=== PATIENT | male | born 1960 | race Caucasian/White ===

== ENCOUNTER 2018-05-29 08:09 | Observation (INO) | payer MEDICARE, OTHER ==
[2018-05-29 08:50] LABS: ADD MAN DIFF? NO
[2018-05-29 08:52] LABS: BASOPHILS % 0.4 % (0.0-2.0); EOSINOPHILS % 0.3 % (0.0-7.0); HEMATOCRIT 41.7 % (42.0-52.0); HEMOGLOBIN 13.2 g/dl (14.0-18.0); LYMPHOCYTES # 2.4 10^3/ul (0.8-2.9); LYMPHOCYTES % 31.1 % (15.0-51.0); MEAN CORPUSCULAR HEMOGLOBIN 28.3 pg (29.0-33.0); MEAN CORPUSCULAR HGB CONC 31.7 g/dl (32.0-37.0); MEAN CORPUSCULAR VOLUME 89.3 fl (82.0-101.0); MONOCYTE # 0.7 10^3/ul (0.3-0.9); MONOCYTES % 8.4 % (0.0-11.0); NEUTROPHIL # 4.6 10^3/ul (1.6-7.5); NEUTROPHILS % 59.2 % (39.0-77.0); PLATELET COUNT 205 10^3/UL (140-415); RED BLOOD COUNT 4.67 10^6/ul (4.70-6.10); RED CELL DISTRIBUTION WIDTH 13.7 % (11.5-14.5)
[2018-05-29 08:52] LABS: WHITE BLOOD COUNT 7.8 10^3/ul (4.8-10.8)
[2018-05-29] MEDS: SOD CHLORIDE 0.9% 500 ML IV (09:10)
[2018-05-29 09:11] LABS: ANION GAP 14 (8-16); BLOOD UREA NITROGEN 25 mg/dl (7-20); CALCIUM 9.4 mg/dl (8.4-10.2); CARBON DIOXIDE 26 mmol/L (21-31); CHLORIDE 104 mmol/L (97-110); CREATININE 1.29 mg/dl (0.61-1.24); GLUCOSE 122 mg/dl (70-220); SODIUM 140 mmol/L (135-144)
[2018-05-29 09:23] LABS: TROPONIN-I < 0.010 ng/ml (0.000-0.120)
[2018-05-29 09:25] LABS: ADD UMIC NO; UR ASCORBIC ACID NEGATIVE (NEGATIVE); UR BILIRUBIN (Dip) NEGATIVE (NEGATIVE); UR BLOOD (Dip) NEGATIVE (NEGATIVE); UR CLARITY CLEAR (CLEAR); UR COLOR STRAW (YELLOW); UR GLUCOSE (Dip) NEGATIVE (NEGATIVE); UR KETONES (Dip) NEGATIVE (NEGATIVE); UR LEUKOCYTE ESTERASE (Dip) NEGATIVE Leu/ul (NEGATIVE); UR NITRITE (Dip) NEGATIVE (NEGATIVE); UR SPECIFIC GRAVITY (Dip) 1.013 (1.003-1.030); UR TOTAL PROTEIN (Dip) NEGATIVE (NEGATIVE); UR UROBILINOGEN (Dip) NEGATIVE (NEGATIVE)
[2018-05-29] MEDS: SOD CHLORIDE 0.9% 1,000 ML IV ×2 (10:04→12:44)
[2018-05-29] MEDS ORDERED: ACETAMINOPHEN 325 MG TAB PO ×2 (11:30→12:00)
[2018-05-29] MEDS ORDERED: ONDANSETRON 4 MG INJ IV ×2 (11:30→12:00)
[2018-05-29] MEDS ORDERED: ALBUTEROL/IPRATROPIUM (NEB) 3 ML AMP HHN (12:00)
[2018-05-29] MEDS ORDERED: DOCUSATE SODIUM 100 MG CAP PO (12:00)
[2018-05-29] MEDS ORDERED: hydrALAzine 20 MG INJ IV (12:00)
[2018-05-29] MEDS ORDERED: LORAZEPAM 2 MG INJ IV (12:00)
[2018-05-29] MEDS ORDERED: NACL 0.9% 3 ML SYG IV (12:00)
[2018-05-29] MEDS ORDERED: MAGNESIUM HYDROXIDE 30ML CUP PO (12:00)
[2018-05-29] MEDS ORDERED: NA PHOSPHATE/BIPHOS 133 ML ENEMA PR (12:00)
[2018-05-29] MEDS ORDERED: HYDROCODONE/APAP (5/325) TAB PO (12:00)
[2018-05-29] MEDS ORDERED: NITROGLYCERIN (SL) 0.4 MG TAB SL (12:00)
[2018-05-29] MEDS ORDERED: morphine 2 MG INJ IV (12:00)
[2018-05-29] MEDS: CARBIDOPA/LEVODOPA (25/250) TAB PO ×2 (12:47→22:21)
[2018-05-29] MEDS: PRAMIPEXOLE 1 MG TAB PO ×2 (12:50→22:21)
[2018-05-29 14:09] LABS: FREE T4 (FREE THYROXINE) 1.19 ng/dl (0.64-1.79)
[2018-05-29] MEDS ORDERED: HEPARIN 5,000 UNIT/0.5 ML VIAL SC (21:00)
[2018-05-30] MEDS: SOD CHLORIDE 0.9% 500 ML IV ×4 (03:03→18:06)
[2018-05-30 06:02] LABS: ADD MAN DIFF? NO
[2018-05-30 06:08] LABS: WHITE BLOOD COUNT 6.4 10^3/ul (4.8-10.8)
[2018-05-30 06:08] LABS: BASOPHILS % 0.5 % (0.0-2.0); EOSINOPHILS # 0.1 10^3/ul (0.0-0.5); EOSINOPHILS % 1.1 % (0.0-7.0); HEMATOCRIT 42.4 % (42.0-52.0); HEMOGLOBIN 13.6 g/dl (14.0-18.0); LYMPHOCYTES # 1.8 10^3/ul (0.8-2.9); LYMPHOCYTES % 27.4 % (15.0-51.0); MEAN CORPUSCULAR HEMOGLOBIN 28.3 pg (29.0-33.0); MEAN CORPUSCULAR HGB CONC 32.1 g/dl (32.0-37.0); MEAN CORPUSCULAR VOLUME 88.1 fl (82.0-101.0); MONOCYTE # 0.8 10^3/ul (0.3-0.9); MONOCYTES % 12.6 % (0.0-11.0); NEUTROPHIL # 3.7 10^3/ul (1.6-7.5); NEUTROPHILS % 58.1 % (39.0-77.0); PLATELET COUNT 207 10^3/UL (140-415); RED BLOOD COUNT 4.81 10^6/ul (4.70-6.10); RED CELL DISTRIBUTION WIDTH 13.6 % (11.5-14.5)
[2018-05-30] MEDS: PANTOPRAZOLE (EC) 40 MG TAB PO (06:11)
[2018-05-30 06:41] LABS: CHOL/HDL RATIO 4.2 RATIO; HDL CHOLESTEROL 41 mg/dl (28-71); LDL CHOLESTEROL,CALCULATED 108 mg/dl; TRIGLYCERIDES 122 mg/dl (0-149)
[2018-05-30 06:41] LABS: CHOLESTEROL 173 mg/dl (100-200)
[2018-05-30 06:44] LABS: HEMOGLOBIN A1C 6.4 % (0-5.9)
[2018-05-30 06:45] LABS: ANION GAP 11 (8-16); BLOOD UREA NITROGEN 16 mg/dl (7-20); CALCIUM 9.2 mg/dl (8.4-10.2); CARBON DIOXIDE 26 mmol/L (21-31); CHLORIDE 106 mmol/L (97-110); CREATININE 1.07 mg/dl (0.61-1.24); GLUCOSE 100 mg/dl (70-220); MAGNESIUM 1.8 mg/dl (1.7-2.5); PHOSPHORUS 3.5 mg/dl (2.5-4.9); POTASSIUM 4.3 mmol/L (3.5-5.1); SODIUM 139 mmol/L (135-144)
[2018-05-30 07:11] LABS: THYROID STIMULATING HORMONE 0.674 MIU/L (0.465-4.680)
[2018-05-30] MEDS: PRAMIPEXOLE 1 MG TAB PO ×3 (08:41→20:43)
[2018-05-30] MEDS: CARBIDOPA/LEVODOPA (25/250) TAB PO ×4 (08:42→20:43)
[2018-05-30] MEDS ORDERED: morphine LIQ (10 MG/5 ML) CUP PO (22:30)
[2018-05-31] MEDS: SOD CHLORIDE 0.9% 500 ML IV ×2 (01:00→03:00)
[2018-05-31] MEDS: PANTOPRAZOLE (EC) 40 MG TAB PO (06:00)
[2018-05-31] MEDS: SOD CHLORIDE 0.9% 1,000 ML IV (07:01)
[2018-05-31 07:34] LABS: ADD MAN DIFF? NO
[2018-05-31 07:37] LABS: BASOPHILS % 0.4 % (0.0-2.0); EOSINOPHILS # 0.1 10^3/ul (0.0-0.5); EOSINOPHILS % 0.6 % (0.0-7.0); HEMATOCRIT 42.7 % (42.0-52.0); HEMOGLOBIN 13.8 g/dl (14.0-18.0); LYMPHOCYTES # 1.6 10^3/ul (0.8-2.9); LYMPHOCYTES % 16.9 % (15.0-51.0); MEAN CORPUSCULAR HEMOGLOBIN 28.5 pg (29.0-33.0); MEAN CORPUSCULAR HGB CONC 32.3 g/dl (32.0-37.0); MEAN PLATELET VOLUME 10.2 fl (7.4-10.4); MONOCYTES % 11.1 % (0.0-11.0); NEUTROPHIL # 6.5 10^3/ul (1.6-7.5); NEUTROPHILS % 70.5 % (39.0-77.0); PLATELET COUNT 207 10^3/UL (140-415); RED BLOOD COUNT 4.85 10^6/ul (4.70-6.10); RED CELL DISTRIBUTION WIDTH 13.7 % (11.5-14.5)
[2018-05-31 07:37] LABS: WHITE BLOOD COUNT 9.3 10^3/ul (4.8-10.8)
[2018-05-31 08:01] LABS: ANION GAP 11 (8-16); BLOOD UREA NITROGEN 17 mg/dl (7-20); CALCIUM 9.1 mg/dl (8.4-10.2); CARBON DIOXIDE 27 mmol/L (21-31); CHLORIDE 104 mmol/L (97-110); CREATININE 1.23 mg/dl (0.61-1.24); GLUCOSE 106 mg/dl (70-220); POTASSIUM 4.4 mmol/L (3.5-5.1); SODIUM 138 mmol/L (135-144)
[2018-05-31] MEDS: CARBIDOPA/LEVODOPA (25/250) TAB PO ×2 (08:34→13:00)
[2018-05-31] MEDS: PRAMIPEXOLE 1 MG TAB PO ×2 (08:34→13:00)
== END 2018-05-31 14:35 | disposition home or self-care (01) ==
LOC: E/R 08:09 → 2NE 11:30
DX: R53.1 Weakness (principal); R41.0 Disorientation, unspecified; N17.9 Acute kidney failure, unspecified; I10 Essential (primary) hypertension; G20 Parkinson's disease
CPT/HCPCS: 36415; 70450; 71045; 80048; 80061; 81003; 83036; 83735; 84100; 84439; 84443; 84484; 85025; 92610; 93005; 96360; 97110; 97116; 97163; 97165; 97535; 99285-25